=== PATIENT | male | born 1950 | race Caucasian/White ===

== ENCOUNTER 2023-10-08 14:39 | Outpatient (CLI) | payer MEDICARE, SELFPAY ==
--- NOTE | ~2023-10-08 | XR_ITS ---
EXAMINATION: XR abdomen/kub 1V INDICATION: Right ureteral stone TECHNIQUE: Supine views of the abdomen were obtained on 2 radiographs. COMPARISON: Outside hospital CT dated 10/04/2023 FINDINGS: The 4 mm right ureteral stone identified on the outside hospital CT is not definitely ident ified however, the stone was last identified in the mid to distal ureter and may be obscured by the s acrum. There are calcifications of the prostate. Phleboliths are noted in the pelvis. The bowel gas p attern is normal. The visualized lung bases are clear. There is mild lumbar spondylosis. IMPRESSION: 1. Right ureteral stone identified on recent CT not definitely identified. Reviewed, dictated and finalized at location F.
== END 2023-10-08 14:40 | disposition home or self-care (01) ==
LOC: ANHIMG 14:47
PROVIDERS: PCP Family Medicine; Visit Provider Urology
DX: N20.1 Calculus of ureter (principal)
CPT/HCPCS: 74018

== ENCOUNTER 2023-10-14 01:23 | Day surgery (SDC) | payer MEDICARE, SELFPAY ==
[2023-10-10 08:12] VITALS: BMI 23.6
--- NOTE | 2023-10-10 08:42 | PC.NURSE ---
Report to the Outpatient Waiting Room, entrance under the green pavilion located off [facility], at time __0830 on date __10/14/23 . Planned Procedure Time: ___1030 . Time changes happen often and if your time is changed the preop area will call you the afternoon before. - You and your visitor will be asked to self-screen and do not enter if you have any COVID symptoms. - A mask is optional within the hospital at this time. Patients may have clear liquids (water, carbonated beverages, clear teas, apple juice) until 3 hours prior to surgery (0730 AM) with a maximum of 20 ounces. - No food from midnight until time of surgery - Infants may have breast milk until 4 hours before surgery, formula 6 hours prior to surgery. - Children will be allowed to drink immediately following surgery. If applicable, please bring a bottle or sippy cup to assist with drinking. Juice, water, soda, and popsicles are readily available. For infants on formula, please bring formula the day of surgery. Pacifiers are allowed. Take the following medications with a SIP of water the morning of surgery: __BACTRIM, & TRAMADOL, ZOFRAN IF NEEDED DO NOT STOP ANY OF YOUR OTHER PRESCRIPTION MEDICATIONS PRIOR TO SURGERY ?EXCEPT THE FOLLOWING Medications to discontinue per physician ___PT STATES LAST DOSE PLAVIX 10/09/23 @ 0800 - DR. ADKINS AWARE Date to take last dose Please no make-up, nail occitan, hairspray, perfume, deodorant, or body powder the day of surgery. No jewelry (including any body piercings) or valuables the day of surgery, leave them at home. Please take a shower or bath the night before, or the morning of, surgery with an antibacterial soap. Wear comfortable, loose fitting clothing. Children are encouraged to wear pajamas. - Jewelry must be removed prior to entering the operating room. Rings and piercings that are not removed may be cut off. - The hospital will not accept responsibility for valuables. - Please leave all valuables, including medications, at home the day of surgery. If you are going home after surgery, a licensed local company flatbed truck driver must drive you home. - NO public transportation without another adult if you receive anesthesia. - We recommend that an adult stay with you for 24 hours following discharge. - We also recommend that you do not drive, make important decision, drink alcoholic beverages, or take any drugs that were not prescribed by your health care provider for at least 24 hours after your discharge time. For Pediatric surgeries, we recommend two adults accompany the child home. Follow any additional instructions given to you from your surgeon. If you or anyone in your household have experienced Covid symptoms in the past week, please notify your surgeon or the nurse liaison at the phone number below for possible testing. Telephone instructions given to ____PT and asked if any additional questions and then verbalized understanding. Patient advised to call surgeon office or pre surgery nurse liaison [phone] if any additional questions.
[2023-10-14] VITALS (8 sets, daily range): BP systolic 96–152; BP diastolic 57–78; PULSE 49–72; RESP 14–16; TEMP 36.4; O2SAT 98–99; BMI 24.4
--- NOTE | ~2023-10-14 | XR_ITS ---
EXAMINATION: XR retrograde pyelo w/stent RT DATE: 10/14/2023 12:52 INDICATION: Right renal stone laser extraction TECHNIQUE: 4 fluoroscopic images of the abdomen and pelvis were obtained during procedure performed malik Osborne. Radiologist was not present for the imaging or procedure. The amount of fluoroscopy t zackery used during this procedure was 0.3 minutes. COMPARISON: Radiograph dated 10/08/2023 FINDINGS: No definite renal stones identified on the public health dentist images. Subsequent images demonstrate retrograde con trast injections into the right ureter and renal collecting system which appears normal with no uroth elial irregularities or filling defects. Subsequent image demonstrates placement of a right internal ureteral stent with loops formed in the right renal pelvis. IMPRESSION: 1. Normal right retrograde pyelogram with right internal ureteral stent placement in expected positio n. See procedure note for further detail. Reviewed, dictated and finalized at location A. IMPRESSION: 1. Normal right retrograde pyelogram with right internal ureteral stent placeme nt in expected position. See procedure note for further detail.
--- NOTE | 2023-10-14 09:00 | SUR.PREOP ---
0900- Patient and friend Nichelle notified procedure start time will be delayed. Patient verbalized understanding and questions answered.
[2023-10-14] MEDS: LACTATED RINGERS 1,000 ML 30 ML IV CONT (09:05)
--- NOTE | 2023-10-14 10:02 | WPDHPUPDATE1 ---
History and Physical Update Update Date/Time: 10/14/23 10:02 History and Physical has been reviewed, including an updated exam of the patient. There are NO changes in the patient's condition. Risks, benefits, and alternatives have been discussed and questions answered. Patient agrees to proceed with procedure. Proceed with cystoscopy right retrograde pyelogram, right ureteroscopy with stone extraction, possible laser, stent placement
--- NOTE | 2023-10-14 12:11 | WPDANESEPPF ---
Anes - Initial Pre Proc Eval Procedure: Operation Date: 10/14/23 10:30 Proposed Procedures p Cystoscopy, Right Ureteroscopy, Right Retrograde Pyelogram, Right Stone Extraction, Possible Holmium Laser, Possible Right Stent Placement - Aftab Osborne MD Date/Time: 10/14/23 12:11 Surgeon: Aftab Osborne MD Pre Op Diagnosis: Rt Ureteral Kidney Stone Patient Data Age: 73 Gender: M Height: 1.63 m Weight: 64.5 kg Last Vital Signs Temp 36.4 C 10/14/23 08:30 Pulse 72 10/14/23 08:30 Resp 14 10/14/23 08:30 BP 105/66 10/14/23 08:30 Pulse Ox 98 10/14/23 08:30 O2 Del Method Room Air 10/14/23 08:30 Allergies Allergy/AdvReac Type Severity Reaction Status Date / Time bacitracin AdvReac Itching Verified 10/14/23 08:56 [From Neosporin Plus] erythromycin base AdvReac Nausea and Verified 10/14/23 08:56 Vomiting hydrocortisone AdvReac Itching Verified 10/14/23 08:56 lidocaine AdvReac Itching Verified 10/14/23 08:56 [From Neosporin Plus] neomycin AdvReac Itching Verified 10/14/23 08:56 [From Neosporin Plus] polymyxin B AdvReac Itching Verified 10/14/23 08:56 [From Neosporin Plus] pramoxine AdvReac Itching Verified 10/14/23 08:56 [From Neosporin Plus] tetracycline AdvReac Nausea and Verified 10/14/23 08:56 Vomiting Home Medications Medication Instructions Recorded Confirmed Type atorvastatin 10 mg tablet 10 mg DAILY 10/10/23 10/10/23 History clopidogrel 75 mg tablet 75 mg DAILY 10/10/23 10/10/23 History ezetimibe 10 mg tablet 10 mg DAILY 10/10/23 10/10/23 History ondansetron HCl 4 mg tablet 4 mg Q6H NAUSE 10/10/23 10/10/23 History sulfamethoxazole 800 1 tablet BID 10/10/23 10/10/23 History mg-trimethoprim 160 mg tablet tamsulosin 0.4 mg capsule 0.4 mg PO BID 10/10/23 10/10/23 History tramadol 50 mg tablet 50 mg Q6H PRN Pain 10/10/23 10/10/23 History Patient hx anesthesia problems: none Family hx anesthesia problems: none Results Review: All pre-operative results and documents have been reviewed as part of the pre-operative evaluation. [facility] Social History Social History Smoking status: Former smoker Tobacco type: cigarettes Additional smoking assessment comments: SMOKED COUPLE MONTHS WHILE IN COLLEGE Substance use type: marijuana Other substance usage details: TRIED BREIFLY FOR PAIN CONTROL Living arrangements: alone Spiritual care concerns: No Anes - Eval Final PreProcedure Day of Procedure 10/14/23 12:11 Patient weight: normal Heart: regular rate and rhythm Lungs: decreased breath sounds Airway: Mallampati scale class II Neurological: alert and oriented Last oral intake: >/= 8 hours ASA classification: III Emergent: no Anesthetic plan: proceed Anesthesia type and monitoring: general LMA and standard monitoring Results Review: All pre-operative results and documents have been reviewed as part of the pre-operative evaluation. Informed Consent: The patient's anesthetic plan and its attendant risks and benefits were discussed with the patient/family/POA. Questions were solicited and answers provided to the satisfaction of the patient/family/POA.
[2023-10-14] MEDS: ceFAZolin 2 GM/D5W 50 ML 2 GM/50 ML BAG IVPB (12:15)
--- NOTE | 2023-10-14 12:48 | W.PM.PROC2 ---
Procedure Note - Detailed Date of Procedure 10/14/23 Pre-op Diagnosis Rt Ureteral Kidney Stone Post-op Diagnosis Same Procedure Performed Cystoscopy, right retrograde pyelogram, right ureteroscopy with holmium laser, stone extraction, right ureteral stent placement 4.8 Ethiopian contour Surgeon Aftab Osborne MD Anesthesia General Description of Procedure Patient is taken to the operative suite correctly identified. Once anesthesia was obtained was placed in dorsal lithotomy position and prepped draped usual sterile fashion. Nineteen Ethiopian scope was inserted the bladder direct vision. There was no urethral strictures. Prostate has some lateral lobe hypertrophy. The bladder itself was without any evidence of tumors. The right ureteral orifice was cannulated with a Sensor wire. I then dilated the orifice with a 8/10 dilator. Rigid ureteral scope was inserted. The stone was visualized. It was too large to retrieve 1 piece. Using a 200 micron holmium laser fiber we fragmented the stone in several pieces. These were sent for analysis. Reinspection revealed no residual stones. Pyelogram was then performed to confirm placement of the cyst stent in the renal pelvis. 4.8 Ethiopian contour stent was then placed with the proximal end coiled in the renal pelvis and the distal end in the bladder. Bladder was drained. He is taken recovery stable condition. He will follow-up in a week's time for stent removal. Please send a copy of op note to my office. Estimated Blood Loss 0 Drains Yes Packing No Pathology Yes Complications No immediate complications Condition Stable Disposition PACU
[2023-10-14] MEDS: ONDANSETRON INJ 4 MG/2 ML VIAL IV PUSH (14:15)
== END 2023-10-14 14:27 | disposition home or self-care (01) ==
PROVIDERS: PCP Family Medicine; Visit Provider Urology
PROC: (CPT 52352; principal; 2023-10-14 10:30)
DX: N20.1 Calculus of ureter (principal); N52.9 Male erectile dysfunction, unspecified; Z79.891 Long term (current) use of opiate analgesic; Z79.02 Long term (current) use of antithrombotics/antiplatelets; F12.90 Cannabis use, unspecified, uncomplicated; Z87.891 Personal history of nicotine dependence
CPT/HCPCS: 52356; 74420; 82365; 88300; C1769; C2617; J0690; J1100; J1200; J2250; J2405; J2704; J3010; J7120; Q9966